=== PATIENT | male | born 1970 | race Caucasian/White ===

== ENCOUNTER 2019-01-12 12:44 | Outpatient (REF) | payer MEDICAID, SELFPAY ==
[2019-01-12 21:54] LABS: HGB 14.7 g/dL (13.5-17.5); Mean Corpuscular Hemoglobin 30.5 pg (27.0-33.0); Mean Corpuscular Volume 95.4 fL (80-95); Mean Platelet Volume 11.2 fL (8.0-11.0); Platelet Count 214 x1000/uL (130-400); RBC 4.82 m/cumm (4.50-6.00); RBC Distribution Width 13.3 % (11.8-14.1)
[2019-01-12 22:56] LABS: ALT 27 U/L (12-78); AST 17 U/L (15-37); Albumin 3.8 g/dL (3.4-5.0); Alkaline Phosphatase 99 U/L (46-116); Anion Gap 10.4 mmol/L (3-11); BUN 21 mg/dL (7-18); Bilirubin, Total 0.2 mg/dL (0.2-1.0); CO2 26.6 mmol/L (21.0-32.0); CREATININE 0.87 mg/dL (0.70-1.30); Calcium 8.9 mg/dL (8.5-10.1); Calculated LDL 151; Chloride 105 mmol/L (98-107); Cholesterol 218 mg/dL (50-200); Glucose 103 mg/dL (70-100); HDL Cholesterol 59 mg/dL (40-60); Potassium 4.6 mmol/L (3.5-5.1); Sodium 142 mmol/L (136-145); TSH (W/Ref FT4) 2.05 uIU/mL (0.358-3.74); Triglyceride 44 mg/dL (30-150); Vitamin B12 439 pg/mL (193-986)
[2019-01-12 23:16] LABS: PHOSPHORUS 4.2 mg/dL (2.6-4.7)
[2019-01-13 08:06] LABS: Vitamin D 25 Total 27.8 ng/ml (30-100)
== END 2019-01-12 13:04 ==
LOC: NCHCN 12:44
PROVIDERS: PCP Family Medicine; Visit Provider Nurse Practitioner Family
DX: F41.9 Anxiety disorder, unspecified (principal); F10.21 Alcohol dependence, in remission; F90.9 Attention-deficit hyperactivity disorder, unspecified type
CPT/HCPCS: 80053; 80061; 82306; 83721; 85027; 82607; 83735; 84100; 84443

== ENCOUNTER 2019-08-01 14:13 | Outpatient (REF) | payer MEDICAID, SELFPAY ==
[2019-08-01 23:04] LABS: Hemoglobin A1C 5.6 % (3.8-5.6)
[2019-08-02 05:29] LABS: Vitamin D 25 Total 25.9 ng/ml (30-100)
[2019-08-03 11:23] LABS: PSA, Screening 0.6 ng/mL (0.0-2.5)
== END 2019-08-01 14:33 ==
LOC: NCHCN 14:13
PROVIDERS: PCP Family Medicine; Visit Provider Family Medicine
DX: R73.9 Hyperglycemia, unspecified (principal); J45.40 Moderate persistent asthma, uncomplicated; F17.200 Nicotine dependence, unspecified, uncomplicated; N40.1 Benign prostatic hyperplasia with lower urinary tract symptoms; Z12.5 Encounter for screening for malignant neoplasm of prostate
CPT/HCPCS: 82306; 84153; 83036

== ENCOUNTER 2020-10-13 16:53 | Outpatient (REF) | payer MEDICAID, SELFPAY ==
[2020-10-13 21:34] LABS: Abs Immature Grans 0.01 10^3/uL (0.0-0.06); Absolute Basophil Count 0.05 10^3/uL (0.0-0.2); Absolute Eosinophil Count 0.26 10^3/uL (0.0-0.7); Absolute Lymphocyte Count 1.55 10^3/uL (1.2-3.4); Absolute Monocyte Count 0.68 10^3/uL (0.1-0.8); Absolute Neutrophil Count 3.81 10^3/uL (1.2-6.7); Basophils % 0.8; Eosinophils % 4.1; HCT 40.5 % (40.0-50.0); HGB 12.9 g/dL (13.5-17.5); Immature Grans % 0.2; Lymphocytes % 24.4; MCH 30.6 pg (27.0-33.0); MCHC 31.9 % (32.0-36.0); MPV 11.5 fL (8.0-11.0); Monocytes % 10.7; Neutrophils % 59.8; Nucleated RBC 0 %; Platelet Count 210 10^3/uL (130-400); RBC 4.22 10^6/uL (4.36-5.78); RDW 12.8 % (11.8-14.1); RDW-SD 45.6 fL; WBC 6.36 10^3/uL (4.4-10.8)
[2020-10-13 22:01] LABS: ALT 30 U/L (16-63); AST 23 U/L (15-37); Albumin 3.7 g/dL (3.4-5.0); Alkaline Phosphatase 118 U/L (46-116); Anion Gap 6.5 mmol/L (3-11); BUN 22 mg/dL (7-18); Bilirubin, Total 0.2 mg/dL (0.2-1.0); CO2 29.5 mmol/L (21.0-32.0); Calculated LDL 130 mg/dL (<100); Chloride 106 mmol/L (98-107); Cholesterol 202 mg/dL (<200); Glucose 129 mg/dL (74-106); HDL Cholesterol 54 mg/dL (40-60); Potassium 4.5 mmol/L (3.5-5.1); Sodium 142 mmol/L (136-145); Total Protein 6.8 g/dL (6.4-8.2); Triglyceride 93 mg/dL (<150)
== END 2020-10-13 16:54 | disposition home or self-care (01) ==
LOC: NCHCN 16:53
PROVIDERS: PCP Family Medicine; Visit Provider Nurse Practitioner Community Health
DX: J45.40 Moderate persistent asthma, uncomplicated (principal); Z82.49 Family history of ischemic heart disease and other diseases of the circulatory system; E78.70 Disorder of bile acid and cholesterol metabolism, unspecified
CPT/HCPCS: 80053; 80061; 85025

== ENCOUNTER 2021-09-24 16:40 | Outpatient (REF) | payer MEDICAID, SELFPAY ==
[2021-09-26 11:31] LABS: COVID-19 RT-PCR UVMMC Result Negative (Negative)
== END 2021-09-24 16:41 | disposition home or self-care (01) ==
LOC: NCHCN 16:40
PROVIDERS: PCP Family Medicine; Visit Provider Registered Nurse
DX: Z20.822 Contact with and (suspected) exposure to COVID-19 (principal); J06.9 Acute upper respiratory infection, unspecified
CPT/HCPCS: U0003

== ENCOUNTER 2022-06-04 18:16 | Outpatient (REF) | payer MEDICAID, SELFPAY ==
[2022-06-07 09:50] LABS: Hepatitis C Ab w Rflx HCV PCR Negative (Negative)
[2022-06-07 09:57] LABS: HIV-1/2 Ag & Ab Screen Negative (Negative)
[2022-06-07 10:08] LABS: Syphilis Serology (RPR) Negative (Negative)
== END 2022-06-04 18:17 | disposition home or self-care (01) ==
LOC: NCHCN 18:16
PROVIDERS: PCP Family Medicine; Visit Provider Registered Nurse
DX: K13.0 Diseases of lips (principal); F19.21 Other psychoactive substance dependence, in remission; Z11.4 Encounter for screening for human immunodeficiency virus [HIV]; Z11.59 Encounter for screening for other viral diseases
CPT/HCPCS: 86803; 87389; 86592

== ENCOUNTER 2022-11-26 21:04 | Outpatient (REF) | payer MEDICAID, SELFPAY ==
[2022-11-26 21:15] LABS: HCT 45.4 % (40.0-50.0); HGB 14.6 g/dL (13.5-17.5); MCH 30.5 pg (27.0-33.0); MCHC 32.2 % (32.0-36.0); MCV 95 fL (80-95); MPV 11.1 fL (8.0-11.0); Platelet Count 236 10^3/uL (130-400); RBC 4.79 10^6/uL (4.36-5.78); RDW-SD 45.5 fL
[2022-11-26 21:31] LABS: ALT 37 U/L (16-63); AST 23 U/L (15-37); Alkaline Phosphatase 114 U/L (46-116); Anion Gap 4.9 mmol/L (3-11); BUN 18 mg/dL (7-18); Bilirubin, Total 0.4 mg/dL (0.2-1.0); CO2 30.1 mmol/L (21.0-32.0); CREATININE 1.1 mg/dL (0.70-1.30); Calcium 9.4 mg/dL (8.5-10.1); Calculated LDL 169 mg/dL (<100); Chloride 103 mmol/L (98-107); Cholesterol 247 mg/dL (<200); Estimated GFR 80.77 (mL/min/1.73m2); Glucose 99 mg/dL (74-106); HDL Cholesterol 67 mg/dL (40-60); Potassium 4.4 mmol/L (3.5-5.1); Sodium 138 mmol/L (136-145); Triglyceride 59 mg/dL (<150)
[2022-11-26 21:52] LABS: Vitamin D 25 Total 18.4 ng/mL (30-100)
== END 2022-11-26 21:05 | disposition home or self-care (01) ==
LOC: NCHCN 21:04
PROVIDERS: PCP Family Medicine; Visit Provider Registered Nurse
DX: I10 Essential (primary) hypertension (principal); E55.9 Vitamin D deficiency, unspecified
CPT/HCPCS: 80053; 80061; 82306; 85027

== ENCOUNTER 2023-01-10 13:33 | Outpatient (REF) | payer MEDICAID, SELFPAY ==
[2023-01-10 16:20] LABS: BUN 32 mg/dL (7-18); Estimated GFR 90.56 (mL/min/1.73m2)
== END 2023-01-10 13:34 | disposition home or self-care (01) ==
LOC: NCHCN 13:33
PROVIDERS: PCP Family Medicine; Visit Provider Registered Nurse
DX: Z00.00 Encounter for general adult medical examination without abnormal findings (principal)
CPT/HCPCS: 84520; 82565

== ENCOUNTER 2023-12-12 13:08 | Outpatient (REF) | payer MEDICAID, SELFPAY ==
[2023-12-12 15:04] LABS: ALT 28 U/L (16-63); AST 18 U/L (15-37); Albumin 3.8 g/dL (3.4-5.0); Alkaline Phosphatase 142 U/L (46-116); Anion Gap 7.8 mmol/L (3-11); BUN 27 mg/dL (7-18); Bilirubin, Total 0.2 mg/dL (0.2-1.0); CO2 29.2 mmol/L (21.0-32.0); CREATININE 0.8 mg/dL (0.70-1.30); Calcium 9.4 mg/dL (8.5-10.1); Calculated LDL 144 mg/dL (<100); Chloride 104 mmol/L (98-107); Cholesterol 219 mg/dL (<200); Estimated GFR 105.82 (mL/min/1.73m2); Glucose 141 mg/dL (74-106); HDL Cholesterol 60 mg/dL (40-60); Potassium 4.1 mmol/L (3.5-5.1); Sodium 141 mmol/L (136-145); Total Protein 7.6 g/dL (6.4-8.2); Triglyceride 79 mg/dL (<150)
== END 2023-12-12 13:09 | disposition home or self-care (01) ==
LOC: NCHCN 13:08
PROVIDERS: PCP Family Medicine; Visit Provider Nurse Practitioner Family
DX: I10 Essential (primary) hypertension (principal)
CPT/HCPCS: 80053; 80061